=== PATIENT | female | born 1990 | race Caucasian/White ===

== ENCOUNTER 2020-06-23 08:30 | Inpatient (IN) | payer BC ==
[2020-06-23 08:49] VITALS: BMI 36.3
[2020-06-23] MEDS ORDERED: FLU VACC QS2020-21(6MOS UP)/PF 60 MCG/0.5 ML SYRINGE IM ONE (09:00)
[2020-06-23] MEDS ORDERED: Butorphanol Tartrate 1 MG/ML VIAL SLOW IVP PRN (09:01)
[2020-06-23] MEDS ORDERED: Promethazine HCl 25 MG/ML VIAL IM PRN ×2 (09:01→11:42)
[2020-06-23] MEDS ORDERED: hydrALAZINE 20 MG/ML VIAL SLOW IVP PRN ×2 (09:01→11:42)
[2020-06-23] MEDS ORDERED: Ondansetron PF 4 MG/2 ML Vial IVP PRN ×2 (09:01→11:42)
[2020-06-23] MEDS ORDERED: Bicitra 30 ML UDCUP PO SCH (09:15)
[2020-06-23] MEDS ORDERED: Lactated Ringer's 1,000 ML IV SCH ×2 (09:15)
[2020-06-23] MEDS ORDERED: Azithromycin 500 MG in Sodium Chloride 0.9% 250 ML 250 ML IVPB SCH (09:15)
--- NOTE | 2020-06-23 09:17 | PDOC.LDHP ---
Labor and Delivery H&P Chief complaint: contractions, other HPI: 28 yo WF presents from [facility] with SROM since 220 last night, now with meconium. Last exam was 7 cm. Current gestational age (weeks): 41 Due date: 06/17/20 Dating criteria: last menstrual period Grav: 2 Para: 1 OB History Details: h/o x1 of 9lb baby PNC this at [facility] w/o reported complications. Current complications: none Abnormal US findings: No (USG done 06/01/20 with EFW of 4646 gms) Past Medical History: hypothyroid Current medications: pre-zach vitamins, other (Synthroid 50 ucg QD) Previous surgical history: other (shoulder) Allergies/Adverse Reactions: Allergies Allergy/AdvReac Type Severity Reaction Status Date / Time penicillin G Allergy Verified 06/23/20 08:39 Social history: none - Physical Exam Vital signs reviewed and normal: yes General: breathing through contractions Heart: RRR Lungs: CTAB Abdomen: gravid Extremeties: trace edema FHT: category 1 [place] contractions every: q 3-4 mins - Vaginal Exam cm dilated: 6 Effacement: 75% Station: -2 - OB Labs GBS: negative - Assessment L&D Assessment: term patient in labor (now with meconium and protracted labor requests C/S USG weeks ago with EFW> 4500 gms) - Plan Plan: admit to L&D, to OR for section, informed consent obtained, other (Anesthesia notified All questions answered)
[2020-06-23 09:24] LABS: Hemoglobin 13.9 g/dL (12.0-16.0); Mean Corpuscular HGB CONC 34.5 g/dL (32.0-36.0); Mean Corpuscular Hemoglobin 31.3 pg (27.0-31.0); Mean Platelet Volume 9.1 fL (7.4-10.4); Platelet Count 161 thou/uL (130-400); RBC Distribution Width 12.7 % (11.5-14.5); Red Blood Cell (RBC) Count 4.44 mill/uL (4.20-5.40); White Blood Cell (WBC) Count 14.8 thou/uL (4.8-10.8)
[2020-06-23] MEDS ORDERED: Clindamycin/D5W 900 MG in Premix Bag 1 BAG IVPB SCH (09:30)
[2020-06-23] MEDS ORDERED: Lidocaine 2% 10 ML INJ ONE (10:08)
[2020-06-23] MEDS ORDERED: Oxytocin 10 UNITS/ML VIAL ONE (10:08)
[2020-06-23 10:12] LABS: Syphilis Antibody Nonreactive (Nonreactive); Syphilis Antibody Index 0.04 S/CO (<1.00 Non-Reactive)
[2020-06-23 10:13] LABS: HBSAg Index 0.22 S/CO (0-0.99); Hep B Surf Ag Non-Reactive S/CO (NonReactive)
[2020-06-23] MEDS ORDERED: Morphine PF 10 MG/10 ML VIAL ONE (10:15)
[2020-06-23 10:25] LABS: SARS-CoV-2 NAA Rapid Test Not Detected (NotDetected)
[2020-06-23 11:12] LABS: Actual Bicarbonate (HCO3a) 23.3 mEq/L (22-28); Base Excess (BEa) -7.9 mEq/L (-2.0 to +3.0)
[2020-06-23] MEDS ORDERED: Midazolam HCl 2 mg/2 ml Vial ONE (11:13)
[2020-06-23 11:14] LABS: Actual Bicarbonate (HCO3v) 21 mEq/L (22-28); Base Excess -8.7 mEq/L (-2.0 to +3.0)
[2020-06-23 11:15] LABS: pH (Cord, venous) 7.17 (7.32-7.43)
[2020-06-23] MEDS ORDERED: diphenhydrAMINE 25 MG CAP PO PRN (11:42)
[2020-06-23] MEDS ORDERED: Simethicone Chewable 80 MG TAB PO PRN (11:42)
[2020-06-23] MEDS ORDERED: HYDROcodone/Acetaminophen 5/325 mg Tablet PO PRN (11:42)
[2020-06-23] MEDS ORDERED: Lanolin Ointment 7 GM TUBE TOP PRN (11:42)
[2020-06-23] MEDS ORDERED: HYDROmorphone 2 MG/ML VIAL SLOW IVP PRN (11:50)
[2020-06-23] MEDS ORDERED: Ondansetron HCl/PF 4 MG/2 ML Vial IVP PRN (11:50)
[2020-06-23] MEDS ORDERED: L&D-Morphine 4 MG/ML VIAL SLOW IVP PRN (11:50)
[2020-06-23] MEDS ORDERED: Meperidine HCl/PF 25 MG/ML VIAL SLOW IVP PRN (11:50)
[2020-06-23] MEDS ORDERED: Ketorolac Tromethamine 30 MG/ML VIAL IVP SCH (12:00)
[2020-06-23] MEDS ORDERED: NS / Oxytocin 40 units/1000ml 1,000 ML ONE (12:04)
--- NOTE | 2020-06-23 12:33 | OP ---
DATE OF PROCEDURE: 06/23/2020 [employer] SURGEON: Ari Jackson MD PREOPERATIVE DIAGNOSES: 1. 41-week intrauterine . 2. Protracted active phase. 3. Meconium-stained fluid. 4. Suspected macrosomia. POSTOPERATIVE DIAGNOSES: 1. 41-week intrauterine . 2. Protracted active phase. 3. Meconium-stained fluid. 4. Suspected macrosomia. PROCEDURE PERFORMED: Primary low segment transverse section via Pfannenstiel incision. ANESTHESIA: Spinal. ESTIMATED BLOOD LOSS: 600 mL with QBL pending. PROPHYLAXIS: Includes Zithromax 500 mg IV, gentamicin 80 mg IV, and clindamycin 900 mg IV prior to incision. COMPLICATIONS: None. FINDINGS: 1. Male infant, weighs 6215 g, found in the cephalic presentation with Apgars 9/9 2. Normal uterus, tubes, and ovaries bilaterally. 3. Meconium-stained placenta. 4. Arterial cord pH of 7.11. DESCRIPTION OF PROCEDURE: After good spinal anesthesia was achieved, the patient was prepped and draped in usual sterile fashion in the supine position with leftward tilt. A transverse incision was made 2 fingerbreadths above the symphysis pubis, and the abdomen was entered in layers. The uterus was identified, and a bladder flap was created in the peritoneum. A transverse incision was made across the lower uterine segment and was extended bluntly. The fetus was found in the cephalic presentation, was delivered. The cord was clamped and cut, and the nasopharynx were bulb suctioned. The baby was then taken to the awaiting team. Cord gases and cord blood were then obtained. The placenta was manually removed. The inside of the uterus was curetted using a dry lap pack. Attention was turned to the uterine incision. This was closed using an interrupted locking suture of Monocryl. Good hemostasis was created using additional interrupted [id number] chromic sutures. Once the uterine incision was made hemostatic, it was replaced into the abdominal cavity, and the pelvic gutters were cleared of all clots and debris. The uterine incision was again reviewed and was noted to be hemostatic once it was in. The peritoneum was closed using a running suture of plain gut. The rectus muscles were inspected and were noted to be hemostatic with the exception of one area where the bracelet former was seen to bleed. Interrupted chromic sutures above and below this area were placed with good hemostasis. Once the rectus muscles were deemed to be dry, the fascia was closed using 2 sutures of #1 PDS brought laterally to the midline in an alternating running fashion. The subcutaneous tissue was made dry using Bovie coagulation technique and then was reapproximated with plain gut suture. Koffi were then used to close the skin. Sponge, lap, and needle counts were correct. The patient tolerated the procedure well and was taken to the recovery room in good condition. Job ID: [id number] [facility]
[2020-06-23] MEDS: Ibuprofen 800 MG TAB PO SCH (16:54)
[2020-06-23] MEDS ORDERED: Naloxone HCl 0.4 mg/ml Vial IV PRN ×2 (17:20→17:21)
[2020-06-24] MEDS: Ketorolac Tromethamine 30 MG/ML VIAL IVP PRN ×2 (02:11→09:48)
[2020-06-24] MEDS: Ibuprofen 800 MG TAB PO SCH ×4 (02:12→21:48)
[2020-06-24] MEDS: Docusate Calcium (SURFAK) 240 MG CAP PO SCH ×3 (02:13→21:48)
--- NOTE | 2020-06-24 02:45 | PDOC.PP ---
Post Progress Note Post Day #: POD1 Subjective: Resting, no complaints. PO intake tolerated: yes Flatus: no Ambulation: no Vital Signs (12 hours) Temp Pulse Resp BP Pulse Ox 06/23/20 16:00 98.0 F 91 18 117/57 L 06/23/20 15:00 97.8 F 93 18 117/58 L 98 Weight Weight 90.265 kg - Physical Examination General: NAD Respiratory: non-labored breathing Abdominal: no distention, appropriately TTP Skin: CS incision dry & intact Neurological: no gross focal deficits Psychiatric: normal affect Result Diagrams: 06/23/20 09:07 Additional Labs: Post Labs Hep Bs Antigen Non-Reactive S/CO (NonReactive) 06/23/20 09:07 Blood Type A POSITIVE 06/23/20 09:34 - Assessment/Plan Doing well s/p 1* C/S Clears and advance DC mariaa this AM then begin ambulation Routine postop care
[2020-06-24 05:54] LABS: Hemoglobin 10.1 g/dL (12.0-16.0); Mean Corpuscular HGB CONC 33.7 g/dL (32.0-36.0); Mean Corpuscular Hemoglobin 31.5 pg (27.0-31.0); Mean Corpuscular Volume 93.4 fL (78.0-98.0); Mean Platelet Volume 8.3 fL (7.4-10.4); Platelet Count 101 thou/uL (130-400); Red Blood Cell (RBC) Count 3.22 mill/uL (4.20-5.40); White Blood Cell (WBC) Count 10.1 thou/uL (4.8-10.8)
[2020-06-24] MEDS: Prenatal Vitamin 1 TAB PO SCH (08:43)
[2020-06-24] MEDS ORDERED: Adacel (T-DAP) 0.5 ML SYRINGE IM ONE (09:00)
[2020-06-24] MEDS: HYDROcodone/Acetaminophen 5/325 mg Tablet PO PRN ×3 (14:18→21:58)
[2020-06-25] MEDS: Ibuprofen 800 MG TAB PO SCH ×2 (05:18→12:45)
--- NOTE | 2020-06-25 08:11 | PRG ---
DATE OF SERVICE: 06/25/2020 PRIMARY OB: [facility]. SUBJECTIVE: The patient is a 29-year-old female, postop day #2 status post a primary for macrosomia, baby was 6300 g. Today, she is reporting she is doing well. She is tolerating p.o., voiding on her own, having decreased lochia and decent pain control and has actually requested to go home if possible. Blood pressure is 106/62, temperature 98.7, pulse of 86, respiratory rate of 14. OBJECTIVE: GENERAL: She appears to be in no acute distress. She is alert, oriented, cooperative, and pleasant to interact with. HEENT: Head is normocephalic, atraumatic. Her incision is clean, dry, and intact with adeline. Fundus is difficult to assess due to habitus. Post delivery hemoglobin and hematocrit are 10.1 and 30.1, platelet count 101,000. ASSESSMENT AND PLAN: The patient is a 29-year-old female, postop day #1 status post a primary for protracted labor and suspected macrosomia. We will continue postoperative care as baby is requiring bili lights and do not anticipate discharge today of the baby and anticipate we will re-evaluate tomorrow. Job ID: [id number]
[2020-06-25] MEDS: Prenatal Vitamin 1 TAB PO SCH (08:17)
[2020-06-25] MEDS: HYDROcodone/Acetaminophen 5/325 mg Tablet PO PRN ×2 (08:18→12:44)
[2020-06-25] MEDS: Docusate Calcium (SURFAK) 240 MG CAP PO SCH (08:18)
[2020-06-25 08:59] VITALS: BP 110/63; TEMP 98.5
== END 2020-06-25 13:15 | disposition home or self-care (01) | DRG 788 ==
LOC: L&D 08:36 → 3SW 15:20
PROVIDERS: ADMIT Obstetrics & Gynecology; ATTEND Obstetrics & Gynecology
PROC: 10D00Z1 Extraction of Products of Conception, Low, Open Approach (ICD-10-PCS; principal; 2020-06-23)
DX: O77.0 Labor and delivery complicated by meconium in amniotic fluid (principal); Z3A.41 41 weeks gestation of pregnancy; Z37.0 Single live birth; Z20.828 Contact with and (suspected) exposure to other viral communicable diseases; O99.284 Endocrine, nutritional and metabolic diseases complicating childbirth; O36.63X0 Maternal care for excessive fetal growth, third trimester, not applicable or unspecified; E03.9 Hypothyroidism, unspecified; Z23 Encounter for immunization; Z88.0 Allergy status to penicillin; Z79.890 Hormone replacement therapy
CPT/HCPCS: 36415; 36416; 82805; 85027; 86780; 86850; 86900; 86901; 87340; 88307; 90715; J1885; J2250; J2270; J2405; U0002